=== PATIENT | male | born 1930 | race Caucasian/White ===

== ENCOUNTER 2017-12-20 14:12 | Emergency (ER) | payer OTHER ==
--- NOTE | 2017-12-20 16:16 | EDPHYS ---
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 . Onset: The symptoms/episode began/occurred today. Severity of symptoms: At their worst the symptoms were mild in the emergency department the symptoms are unchanged. The patient has not experienced similar symptoms in the past. The patient has been recently seen by a physician:. Historical: - Allergies: 14:40 NKA; iw - Home Meds: 14:40 Rytary 48.75-195 mg oral cpER 1 cap 3 times per day [Active]; Namenda oral 28 mg oral iw daily [Active]; Simvastatin Oral once daily [Active]; metformin 1,000 mg Oral tab 1 tab 2 times per day [Active]; losartan 50 mg oral tab 1 tab once daily [Active]; pramipexole 0.25 mg oral tab 1 tab 3 times per day [Active]; levothyroxine 88 mcg tab 1 tab once daily [Active]; timolol ophthalmic ophthalmic once daily [Active]; - PMHx: 14:40 Parkinsons; Hypothyroidism; Diabetes - NIDDM; iw - Ebola Screening: : Patient negative for fever greater than or equal to 101.5 degrees Fahrenheit, and additional compatible Ebola Virus Disease symptoms Patient denies exposure to infectious person Patient denies travel to an Ebola-affected area in the 21 days before illness onset No symptoms or risks identified at this time. - Family history:: not pertinent. - Hospitalizations: : No recent hospitalization is reported. 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 Skin: Warm, dry, approx 1.5 cm diameter clean wound to right tenriism, mild bleeding, no arterial bleeding. Vital Signs: 14:35 BP 182 / 93; Pulse 65; Resp 16; Pulse Ox 97% on R/A; iw 15:25 BP 171 / 78; Pulse 56; Resp 18; Pulse Ox 98% ; sv MDM: 14:24 Patient medically screened. rn 16:14 Differential Diagnosis post surgical bleeding. Data reviewed: vital signs, nurses rn notes, and as a result, I will discharge patient. Counseling: I had a detailed discussion with the patient and/or guardian regarding: the historical points, exam findings, and any diagnostic results supporting the discharge/admit diagnosis, the need for outpatient follow up, to return to the emergency department if symptoms worsen or persist or if there are any questions or concerns that arise at home. Special discussion: I discussed with the patient/guardian in detail that at this point there is no indication for admission to the hospital. It is understood, however, that if the symptoms persist or worsen the patient needs to return immediately for re-evaluation. ED course: Pt improved, surgicel applied and bleeding stopped, will re-dress and dc home. . Administered Medications: No medications were administered Disposition: 12/20/17 16:15 Discharged to Home. Impression: Bleeding surgical wound. - Condition is Stable. - Medication Reconciliation Form, Thank You Letter, Antibiotic Education, Prescription Opioid Use form. - Follow up: Oc Connors MD; When: As needed; Reason: Recheck today's complaints, Re-evaluation by your physician. - Problem is new. - Symptoms have improved. Signatures: Steph Koo Irene, RN RN iw Lonnie Vickers MD MD international trade compliance manager: (The following items were deleted from the chart) 16:33 16:15 12/20/2017 16:15 Discharged to Home. Impression: Bleeding surgical wound. bd Condition is Stable. Forms are Medication Reconciliation Form, Thank You Letter, Antibiotic Education, Prescription Opioid Use. Follow up: Oc Connors; When: As needed; Reason: Recheck today's complaints, Re-evaluation by your physician. Problem is new. Symptoms have improved. rn
--- NOTE | 2017-12-20 16:16 | ER ---
Nurse's Notes [facility] Name: Aakash Starkey Jr Age: 87 yrs Sex: Male : 1930 Arrival Date: 12/20/2017 Time: 14:13 Bed 7 Private MD: Oc Connors C Diagnosis: Bleeding surgical wound Presentation: 12/20 14:33 Presenting complaint: Patient states: had surgical procedure to remove melanoma off iw right side of face yesterday, started bleeding today. Transition of care: patient was not received from another setting of care. Onset of symptoms was December 20, 2017. Risk Assessment: Do you want to hurt yourself or someone else? Patient reports no desire to harm self or others. Initial Sepsis Screen: Does the patient meet any 2 criteria? No. Patient's initial sepsis screen is negative. Does the patient have a suspected source of infection? No. Patient's initial sepsis screen is negative. Care prior to arrival: Bleeding of injury controlled. 14:33 Method Of Arrival: Ambulatory iw 14:33 Acuity: [id number] 4 iw Historical: - Allergies: 14:40 NKA; iw - Home Meds: 14:40 Rytary 48.75-195 mg oral cpER 1 cap 3 times per day [Active]; Namenda oral 28 mg oral iw daily [Active]; Simvastatin Oral once daily [Active]; metformin 1,000 mg Oral tab 1 tab 2 times per day [Active]; losartan 50 mg oral tab 1 tab once daily [Active]; pramipexole 0.25 mg oral tab 1 tab 3 times per day [Active]; levothyroxine 88 mcg tab 1 tab once daily [Active]; timolol ophthalmic ophthalmic once daily [Active]; - PMHx: 14:40 Parkinsons; Hypothyroidism; Diabetes - NIDDM; iw - Ebola Screening: : Patient negative for fever greater than or equal to 101.5 degrees Fahrenheit, and additional compatible Ebola Virus Disease symptoms Patient denies exposure to infectious person Patient denies travel to an Ebola-affected area in the 21 days before illness onset No symptoms or risks identified at this time. - Family history:: not pertinent. - Hospitalizations: : No recent hospitalization is reported. Screenin:40 Abuse screen: Denies threats or abuse. Denies injuries from another. Nutritional sv screening: No deficits noted. Tuberculosis screening: No symptoms or risk factors identified. Fall Risk None identified. Assessment: 14:53 General: Appears in no apparent distress. comfortable, Behavior is calm, cooperative, sv appropriate for age. Pain: Denies pain. Neuro: Level of Consciousness is awake, alert, obeys commands, Oriented to person, place, time, situation, Moves all extremities. Full function. Respiratory: Respiratory effort is even, unlabored, Respiratory pattern is regular, symmetrical. Derm: Skin is normal, quarter sized area on the right cheek noted. Musculoskeletal: Range of motion: intact in all extremities. 16:00 Reassessment: Patient appears in no apparent distress at this time. No changes from sv previously documented assessment. Patient and/or family updated on plan of care and expected duration. Pain level reassessed. Patient is alert, oriented x 3, equal unlabored respirations, skin warm/dry/pink. Vital Signs: 14:35 BP 182 / 93; Pulse 65; Resp 16; Pulse Ox 97% on R/A; iw 15:25 BP 171 / 78; Pulse 56; Resp 18; Pulse Ox 98% ; sv ED Course: 14:13 Patient arrived in ED. rg4 14:13 Oc Connors MD is Private Physician. rg4 14:24 Lonnie Vickers MD is Attending Physician. rn 14:35 Triage completed. iw 14:40 Latrice Cam RN is Primary Nurse. sv 14:40 Arm band placed on. iw 14:40 Patient has correct armband on for positive identification. Bed in low position. Door sv closed. Head of bed elevated. 16:15 Oc Connors MD is Referral Physician. rn 16:30 No provider procedures requiring assistance completed. Patient did not have IV access sg during this emergency room visit. Administered Medications: No medications were administered Outcome: 16:15 Discharge ordered by MD. rn 16:30 Discharged to home ambulatory, with family. sg 16:30 Condition: good 16:30 Discharge instructions given to patient, Instructed on discharge instructions, follow up and referral plans. safety practices, Demonstrated understanding of instructions, follow-up care, Prescriptions given X 1. 16:33 Patient left the ED. bd Signatures: Steph Koo Stephanie, RN RN sv Jameson Evans RN RN sg [place] RN RN Lonnie Vickers MD MD rn Garcia, Rubi rg4
[2017-12-20 16:37] VITALS: BP 171/78; O2SAT 98
== END 2017-12-20 16:33 | disposition home or self-care (01) ==
LOC: ER 14:12
DX: L76.22 Postprocedural hemorrhage of skin and subcutaneous tissue following other procedure (principal); E11.9 Type 2 diabetes mellitus without complications; E03.9 Hypothyroidism, unspecified; G20 Parkinson's disease; Z85.820 Personal history of malignant melanoma of skin
CPT/HCPCS: 99282